=== PATIENT | female | born 1960 | race Caucasian/White ===

== ENCOUNTER → 2016-08-21 | Outpatient (CLI) | payer MEDICARE, MEDICAID ==
--- NOTE | 2016-08-21 11:02 | DI ---
Indication: ITS.REASON: M54.9 Dorsalgia, unspecified PROCEDURE: SCOLIOSIS STANDING 2 VIEW: Encounter: Initial Comparison: None Findings: AP and lateral views of the thoracic spine. Exaggerated thoracic kyphosis with mild wedging of multiple mid to lower thoracic vertebra with less than 20% height loss. No acute fracture or subluxation seen. Right-sided shunt catheter tubing. This could be a ventriculopleural shunt as I do not see the tubing continuing into the abdomen. Left subclavian port catheter in place. Upper thoracic vertebra are not well visualized on the lateral view. AP and lateral views of the lumbar spine: No significant scoliotic curvature. Five nonrib-bearing lumbar-type vertebral bodies are present. No acute fracture identified. No significant disk space narrowing. Arterial vascular calcifications. Impression: No significant scoliosis. Exaggerated thoracic kyphosis. .
== END ==
LOC: IMA 09:45
PROVIDERS: ATTEND Family Medicine Sports Medicine
DX: M40.294 Other kyphosis, thoracic region (principal); M54.9 Dorsalgia, unspecified